=== PATIENT | male | born 1965 | race African-American/Black ===

== ENCOUNTER 2020-09-04 21:41 | Emergency (ER) | payer MEDICAID ==
[~2020-09-04] VITALS: Ht 190.5 cm; Wt 109.1 kg
[2020-09-04 21:48] VITALS: BP 120/84
== END 2020-09-04 22:42 | disposition left against medical advice (07) ==
LOC: EMS 21:41
DX: Z01.89 Encounter for other specified special examinations (principal); Z53.21 Procedure and treatment not carried out due to patient leaving prior to being seen by health care provider